=== PATIENT | male | born 1945 | race Caucasian/White ===

== ENCOUNTER → 2016-09-29 | Outpatient (CLI) | payer OTHER ==
--- NOTE | ~2016-09-29 | US84 ---
[id number] [facility]. [facility] [address] [place], [place] [address] [id number] O MR#: [id number] [facility] #: [id number] NAME: FABBY AMAYA : 1945 SEX: M STUDY DATE/TIME: 09/29/2016 10:22 UNIT: CNIV ROOM: STUDY DESCRIPTION: US LE Veins Complete Tigre Stdy Attending Physician: Jean Pierre Harry M.D. Referring Physician: Jean Pierre Harry M.D. Ordering Physician: Jean Pierre Harry M.D. Primary Care Physician: Generic Doctor Not In System MEDICAL IMAGING REPORT This report is preliminary unless electronic signature is present EXAM Bilateral lower extremity venous, 09/29/2016. HISTORY Bilateral lower extremity swelling/edema for 2 weeks. Previous history of deep venous thrombosis. Patient states he recently stopped taking blood thinners. COMPARISON None. TECHNIQUE Real-time weldon-scale, color Doppler, and spectral Doppler imaging was performed of the bilateral lower extremity veins from the groin through the calf regions. FINDINGS Right common femoral, femoral, popliteal, anterior and posterior tibial and peroneal veins demonstrate normal flow, compressibility, and/or augmentation without deep venous thrombosis. The left common femoral vein, popliteal, anterior and posterior tibial and peroneal veins demonstrate normal flow, compressibility and/or augmentation without deep venous thrombosis. There is eccentric nonocclusive and somewhat echogenic thrombus within the [id number] left superficial femoral vein, favored to represent chronic deep venous thrombosis. IMPRESSION 1. Features favoring chronic nonocclusive deep venous thrombosis within the left mid to distal superficial femoral vein, based on its echogenic and eccentric nature. Please correlate with outside imaging studies and known history. No comparison studies at this institution. 2. No occlusive left lower extremity deep venous thrombosis is seen. Remaining left lower straight veins remain patent. 3. No right lower extremity deep venous thrombosis. Dictated by... Yari Barahona M.D. THIS IS AN ELECTRONICALLY VERIFIED REPORT Yari Barahona M.D. at 10/01/2016 2:17 PM JAMMIE/suad TD: 09/29/2016 16:39 JOB #: [id number] MEDICAL IMAGING REPORT Page 1 of 1 COPY
--- NOTE | ~2016-09-29 | CR63 ---
[facility] A Service of [facility] RADIOLOGY TEXT RESULTS PATIENT: FABBY AMAYA RAY LOCATION: CNIV : 45 UNIT #: [id number] AGE: [address]: Jean Pierre Harry MD SEX: M ORDER DR: [id number] [facility] [address] [place], [place] [address] [id number] O MR#: [id number] Acc #: [id number] NAME: FABBY AMAYA : 1945 SEX: M STUDY DATE/TIME: 09/29/2016 10:03 UNIT: [facility]IV ROOM: STUDY DESCRIPTION: CR Chest 2 View Attending Physician: Jean Pierre Harry M.D. Referring Physician: Jean Pierre Harry M.D. Ordering Physician: Jean Pierre Harry M.D. Primary Care Physician: Generic Doctor Not In System MEDICAL IMAGING REPORT This report is preliminary unless electronic signature is present EXAM Chest 09/29/2016. [facility] HISTORY 71-year-old male preop clearance total left hip arthroplasty. Osteoarthritis. FINDINGS Two-view chest demonstrates normal heart size. Hilar structures and mediastinal contours are preserved. There is a moderate thoracic scoliosis present. Lungs are expanded and clear with an occasional granuloma only. IMPRESSION Thoracic scoliosis. Otherwise negative chest. Dictated by... Red Yusuf M.D. THIS IS AN ELECTRONICALLY VERIFIED REPORT Red Yusuf M.D. at 09/29/2016 2:54 PM GUSTAVO/malu TD: 09/29/2016 14:05 JOB #: [id number] MEDICAL IMAGING REPORT Page 1 of 1 COPY
== END | disposition home or self-care (01) ==
LOC: CNIV 09:41 → CAMB 11:00
DX: Z01.818 Encounter for other preprocedural examination (principal); M16.12 Unilateral primary osteoarthritis, left hip; M79.89 Other specified soft tissue disorders; M79.604 Pain in right leg; M79.605 Pain in left leg; M41.9 Scoliosis, unspecified
CPT/HCPCS: 71020; 93970